=== PATIENT | female | born 1930 | race Caucasian/White ===

== ENCOUNTER 2017-06-14 15:28 | Inpatient (IN) | payer OTHER, BC ==
[~2017-06-14] VITALS: Ht 165.1 cm; Wt 48.4 kg
[~2017-06-14 15:28] MED LIST: ANORO ELLIPTA1 EACH IH; ASPIRIN81 M2 PO; ATORVASTATIN CA20 MG PO; B-121000 MC2 PO; CILOSTAZOL50 MG PO; CYANOCOBALAM1000 MCG PO; DOCUSATE SODIU100 MG PO; ENDOCET 5-3251 EACH PO; ERGOCALCIF50000 UNIT PO; ESGIC 50-325-41 EAC1 PO; FIORINAL 50-321 EACH PO; FUROSEMIDE40 MG PO; IRON160 M1 PO; IRON325 MG PO; LEVOXYL88 MCG PO; LOSARTAN POTAS100 MG PO; LOVENOX40 MG/0.4 SC; MEDROL DOSEPAK4 MG PO; METFORMIN HCL500 MG PO; NAPROSYN500 MG PO; OMEPRAZOLE40 M1 PO; VALIUM5 MG PO; ZOFRAN4 MG PO; ZOLPIDEM TARTRAT5 MG PO
[2017-06-14 16:47] LABS: PROTHROMBIN TIME 11.1 SEC (10.2-12.9)
[2017-06-14 16:48] LABS: EOSINOPHIL (%) 8.3 % (0-5); EOSINOPHIL COUNT 0.5 K/uL (0-0.3); HEMATOCRIT 19.1 % (36.0-46.0); IMMATURE GRANULOCYTE (%) 0.3 % (0.0-0.7); LYMPHOCYTE COUNT 0.6 K/uL (1.0-2.8); MCH 24.2 PG (29.0-34.0); MCHC 30.9 G/DL (30.0-36.0); MCV 78.3 FL (83-99); MEAN PLAT.VOLUME 9.8 uM^3 (9.5-12.4); MONOCYTE (%) 15.8 % (3-12); NEUTROPHIL (%) 65.7 % (45-76); PLATELET COUNT 523 K/uL (156-360); RBC DIS.WIDTH-CV 15.6 % (11.8-14.6); RBC DIS.WIDTH-SD 44.4 % (39-53); RED BLOOD COUNT 2.44 M/uL (3.80-5.20); WHITE BLOOD COUNT 6.1 K/uL (4.1-10.2)
[2017-06-14 16:50] LABS: PTT 35.1 SEC (25-37)
[2017-06-14 17:35] LABS: TROP-I INTERPRETATION NEGATIVE; TROPONIN-I < 0.01 ng/mL (0.0-0.30)
[2017-06-14 17:44] LABS: FERRITIN 8 NG/ML (10-291)
[2017-06-14 17:45] LABS: ALKALINE PHOSPHATASE 81 IU/L (3-129); ANION GAP 8 MEQ/L (2-14); CHLORIDE 99 MEQ/L (99-109); GFR ESTIMATE (CALCULATED) > 59 mL/min/; GLUCOSE 126 mg/dL (70-99); POTASSIUM 4.3 MEQ/L (3.7-5.4); SAMPLE HEMOLYSIS CHECK 0; SAMPLE ICTERIC CHECK 0; SAMPLE LIPEMIA CHECK 1; SODIUM 130 MEQ/L (136-147); TOTAL BILIRUBIN 0.2 MG/DL (0.0-1.0); UREA NITROGEN (BUN) 19 mg/dL (9-23)
[2017-06-14 17:47] LABS: IRON < 10 MCG/DL (35-150)
[2017-06-14] MEDS ORDERED: FIORINAL 50-321 EACH PO (18:41)
[2017-06-14] MEDS ORDERED: TRAMADOL HCL50 MG PO (18:42)
[2017-06-14] MEDS ORDERED: LIPITOR20 MG PO (18:43)
[2017-06-14] MEDS ORDERED: PLAVIX75 MG PO (18:44)
[2017-06-14] MEDS ORDERED: MELATONIN1 MG PO (18:45)
[2017-06-14] MEDS ORDERED: BENADRYL ALLERG25 MG PO (18:46)
[2017-06-14 21:13] VITALS: BP 150/67
[2017-06-14 22:29] VITALS: BP 145/67
[2017-06-14 22:44] VITALS: BP 125/65
[2017-06-14 23:44] VITALS: BP 148/71
[2017-06-15] VITALS (20 sets, daily range): BP systolic 126–163; BP diastolic 56–74
[2017-06-15 07:29] LABS: HEMATOCRIT 25.6 % (36.0-46.0); MEAN PLAT.VOLUME 9.7 uM^3 (9.5-12.4); PLATELET COUNT 417 K/uL (156-360); RBC DIS.WIDTH-CV 14.7 % (11.8-14.6); RBC DIS.WIDTH-SD 41.5 % (39-53)
[2017-06-15 07:51] LABS: RED BLOOD COUNT 3.28 M/uL (3.80-5.20)
[2017-06-16 00:04] VITALS: BP 153/67
[2017-06-16 08:16] VITALS: BP 154/66
[2017-06-16 11:14] LABS: HEMATOCRIT 34.1 % (36.0-46.0); MCH 26.4 PG (29.0-34.0); MCHC 33.4 G/DL (30.0-36.0); MCV 78.9 FL (83-99); MEAN PLAT.VOLUME 9.1 uM^3 (9.5-12.4); PLATELET COUNT 377 K/uL (156-360); RBC DIS.WIDTH-CV 15.4 % (11.8-14.6); RBC DIS.WIDTH-SD 43.9 % (39-53); WHITE BLOOD COUNT 6.7 K/uL (4.1-10.2)
[2017-06-16 11:15] LABS: RED BLOOD COUNT 4.32 M/uL (3.80-5.20)
[2017-06-16 11:41] LABS: ALKALINE PHOSPHATASE 77 IU/L (3-129); ANION GAP 9 MEQ/L (2-14); CHLORIDE 98 MEQ/L (99-109); GFR ESTIMATE (CALCULATED) > 59 mL/min/; GLUCOSE 120 mg/dL (70-99); SAMPLE HEMOLYSIS CHECK 0; SAMPLE ICTERIC CHECK 0; SAMPLE LIPEMIA CHECK 0; SODIUM 131 MEQ/L (136-147); UREA NITROGEN (BUN) 13 mg/dL (9-23)
[2017-06-16 11:42] LABS: TOTAL BILIRUBIN 0.7 MG/DL (0.0-1.0)
[2017-06-16] MEDS ORDERED: DOCUSATE SODIU100 MG PO (12:43)
[2017-06-16] MEDS ORDERED: SODIUM CHLORIDE1 G1 PO (12:43)
== END 2017-06-16 14:09 | disposition home or self-care (01) | DRG 812 ==
LOC: EME 15:28 → 3EAST 17:30 → EDOF 17:30 → ENRESERV 17:54 → 3EAST 20:56
PROVIDERS: Emergency Medicine; Family Medicine
PROC: 30233N1 Transfusion of Nonautologous Red Blood Cells into Peripheral Vein, Percutaneous Approach (ICD-10-PCS; principal; 2017-06-14)
DX: D50.9 Iron deficiency anemia, unspecified (principal); K92.2 Gastrointestinal hemorrhage, unspecified; J44.9 Chronic obstructive pulmonary disease, unspecified; I10 Essential (primary) hypertension; E78.5 Hyperlipidemia, unspecified; K21.9 Gastro-esophageal reflux disease without esophagitis; K59.04 Chronic idiopathic constipation; E87.1 Hypo-osmolality and hyponatremia; F17.200 Nicotine dependence, unspecified, uncomplicated; E03.9 Hypothyroidism, unspecified; D47.2 Monoclonal gammopathy; G43.909 Migraine, unspecified, not intractable, without status migrainosus; E53.8 Deficiency of other specified B group vitamins; E11.51 Type 2 diabetes mellitus with diabetic peripheral angiopathy without gangrene
CPT/HCPCS: 36415; 71010; 80053; 80061; 82607; 82728; 83036; 83540; 84443; 84466; 84484; 85025; 85025 91; 85027; 85610; 85730; 86850; 86900; 86901; 86905; 86920; 93005; 94640; 94640 76; 99281; 99285; C9113; P9016

== ENCOUNTER 2017-10-11 16:14 | Inpatient (IN) | payer OTHER, BC ==
[~2017-10-11] VITALS: Ht 165.1 cm; Wt 48.9 kg
[~2017-10-11 16:14] MED LIST changes: +BENADRYL ALLERG25 MG PO; +LIPITOR20 MG PO; +MELATONIN1 MG PO; +PLAVIX75 MG PO; +SODIUM CHLORIDE1 G1 PO; +TRAMADOL HCL50 MG PO
[2017-10-11 16:53] LABS: BASOPHIL (%) 0.2 % (0-1); EOSINOPHIL (%) 0.3 % (0-5); HEMATOCRIT 32.8 % (36.0-46.0); HEMOGLOBIN 11.6 G/DL (11.9-15.5); IMMATURE GRANULOCYTE (%) 0.2 % (0.0-0.7); LYMPHOCYTE (%) 3.7 % (15-42); LYMPHOCYTE COUNT 0.3 K/uL (1.0-2.8); MCH 33.2 PG (29.0-34.0); MCHC 35.4 G/DL (30.0-36.0); MONOCYTE (%) 7.7 % (3-12); MONOCYTE COUNT 0.7 K/uL (0-0.8); NEUTROPHIL (%) 87.9 % (45-76); NEUTROPHIL COUNT 7.9 K/uL (1.8-6.4); PLATELET COUNT 322 K/uL (156-360); RBC DIS.WIDTH-CV 13.6 % (11.8-14.6); RBC DIS.WIDTH-SD 46.4 % (39-53); RED BLOOD COUNT 3.49 M/uL (3.80-5.20); WHITE BLOOD COUNT 8.9 K/uL (4.1-10.2)
[2017-10-11 17:04] LABS: AMYLASE 57 IU/L (1-118); CHLORIDE 94 mEq/L (99-109); POTASSIUM 4.7 mEq/L (3.7-5.4); SODIUM 130 mEq/L (136-147)
[2017-10-11 17:06] LABS: GLUCOSE 149 mg/dL (70-99); PTT 35.5 SEC (25-37)
[2017-10-11 17:09] LABS: SERUM ETHYL ALCOHOL < 10 mg/dL
[2017-10-11 17:10] LABS: CREATININE 0.7 mg/dL (0.6-1.3); GFR ESTIMATE (CALCULATED) > 59 mL/min/
[2017-10-11 17:11] LABS: UREA NITROGEN (BUN) 15 mg/dL (9-23)
[2017-10-11 17:13] LABS: LIPASE 25 U/L (1.0-51.0)
[2017-10-11 17:16] LABS: TROP-I INTERPRETATION POSITIVE
[2017-10-11 17:18] LABS: TROPONIN-I 2.37 ng/mL (0.0-0.30)
[2017-10-11] MEDS ORDERED: VITAMIN B12 100MCG PO (18:44)
[2017-10-11] MEDS ORDERED: PRESERVISION A1 EAC2 PO (18:46)
[2017-10-11] MEDS ORDERED: FEOSOL325 MG PO (18:49)
[2017-10-11] MEDS ORDERED: [UNRECOGNIZED DRUG - OTHER] PO (18:50)
[2017-10-11] MEDS ORDERED: ALLERGY RELIEF10 M1 PO (18:51)
[2017-10-11] MEDS ORDERED: OMEPRAZOLE40 M1 PO (19:13)
[2017-10-11 20:27] LABS: APPEARANCE CLEAR ((CLEAR)); BILIRUBIN NEGATIVE; BLOOD NEGATIVE; COLOR YELLOW ((YELLOW)); GLUCOSE (STRIP) NEGATIVE; KETONES 5; LEUKOCYTES NEGATIVE; NITRITE NEGATIVE; PROTEIN (STRIP) 30; SPECIFIC GRAVITY 1.014 (1.000-1.030); UCUL ADDED? NO; UROBILINOGEN 0.2 MG/DL (0.2-1.0)
[2017-10-11 20:50] LABS: AMPHETAMINE NEGATIVE (500 ng/mL); BARBITURATES NEGATIVE (200 ng/mL); BENZODIAZEPINES NEGATIVE (150 ng/mL); BUPRENORPHINE NEGATIVE (10 ng/mL); COCAINE NEGATIVE (150 ng/mL); METHADONE NEGATIVE (200 ng/mL); METHAMPHETAMINE NEGATIVE (500 ng/mL); OPIATES (MORPHINE) NEGATIVE (100 ng/mL); OXYCODONE NEGATIVE (100 ng/mL); PHENCYCLIDINE NEGATIVE (25 ng/mL); PROPOXYPHENE NEGATIVE (300 ng/mL); THC CANNABINOIDS NEGATIVE (50 ng/mL); TRICYCLIC ANTIDEPRESSANTS NEGATIVE (300 ng/mL)
[2017-10-11 20:58] VITALS: BP 139/92
[2017-10-11 21:30] VITALS: BP 139/92
[2017-10-11 22:00] VITALS: BP 145/8
[2017-10-11 23:00] VITALS: BP 135/83
[2017-10-12] VITALS (18 sets, daily range): BP systolic 117–158; BP diastolic 64–104
[2017-10-12 01:46] LABS: TROP-I INTERPRETATION POSITIVE; TROPONIN-I 2.91 ng/mL (0.0-0.30)
[2017-10-12 04:29] LABS: HEMATOCRIT 29.2 % (36.0-46.0); HEMOGLOBIN 10.5 G/DL (11.9-15.5); MCH 33.4 PG (29.0-34.0); PLATELET COUNT 401 K/uL (156-360); RBC DIS.WIDTH-CV 13.4 % (11.8-14.6); RED BLOOD COUNT 3.14 M/uL (3.80-5.20)
[2017-10-12 04:51] LABS: CHLORIDE 97 mEq/L (99-109); POTASSIUM 4.4 mEq/L (3.7-5.4); SODIUM 129 mEq/L (136-147)
[2017-10-12 04:52] LABS: MAGNESIUM 1.6 mg/dL (1.3-2.7)
[2017-10-12 04:53] LABS: GLUCOSE 134 mg/dL (70-99)
[2017-10-12 04:57] LABS: CREATININE 0.7 mg/dL (0.6-1.3); GFR ESTIMATE (CALCULATED) > 59 mL/min/
[2017-10-12 04:58] LABS: UREA NITROGEN (BUN) 18 mg/dL (9-23)
[2017-10-12 05:04] LABS: TROP-I INTERPRETATION POSITIVE
[2017-10-12 05:05] LABS: TROPONIN-I 2.33 ng/mL (0.0-0.30)
[2017-10-12 10:42] LABS: TROP-I INTERPRETATION POSITIVE; TROPONIN-I 2.47 ng/mL (0.0-0.30)
[2017-10-13] VITALS (12 sets, daily range): BP systolic 103–145; BP diastolic 64–97
[2017-10-13 13:18] LABS: CHLORIDE 95 MEQ/L (99-109); POTASSIUM 4.9 MEQ/L (3.7-5.4); SODIUM 125 MEQ/L (136-147)
[2017-10-13 13:24] LABS: CREATININE 0.9 MG/DL (0.6-1.3); GFR ESTIMATE (CALCULATED) > 59 mL/min/; GLUCOSE 145 mg/dL (70-99)
[2017-10-13 13:25] LABS: UREA NITROGEN (BUN) 30 mg/dL (9-23)
[2017-10-14 08:40] VITALS: BP 117/54
[2017-10-14 14:13] LABS: HEMATOCRIT 28.4 % (36.0-46.0); HEMOGLOBIN 9.8 G/DL (11.9-15.5); MCH 32.7 PG (29.0-34.0); MCHC 34.5 G/DL (30.0-36.0); MCV 94.7 FL (83-99); PLATELET COUNT 341 K/uL (156-360); RBC DIS.WIDTH-CV 13.7 % (11.8-14.6); RBC DIS.WIDTH-SD 47.3 % (39-53); WHITE BLOOD COUNT 9.3 K/uL (4.1-10.2)
[2017-10-14 14:27] LABS: CHLORIDE 94 MEQ/L (99-109); POTASSIUM 4.2 MEQ/L (3.7-5.4); SODIUM 125 MEQ/L (136-147)
[2017-10-14 14:36] LABS: CREATININE 0.9 MG/DL (0.6-1.3); GFR ESTIMATE (CALCULATED) > 59 mL/min/; UREA NITROGEN (BUN) 35 mg/dL (9-23)
[2017-10-14 14:37] LABS: GLUCOSE 97 mg/dL (70-99)
[2017-10-14 23:59] VITALS: BP 120/61
[2017-10-15 07:22] LABS: CHLORIDE 102 MEQ/L (99-109); CREATININE 0.8 MG/DL (0.6-1.3); GFR ESTIMATE (CALCULATED) > 59 mL/min/; GLUCOSE 88 mg/dL (70-99); POTASSIUM 4.4 MEQ/L (3.7-5.4); UREA NITROGEN (BUN) 31 mg/dL (9-23)
[2017-10-15 07:25] VITALS: BP 145/76
[2017-10-15 07:31] LABS: SODIUM 135 MEQ/L (136-147)
[2017-10-15 15:25] VITALS: BP 128/69
[2017-10-15 20:58] VITALS: BP 126/73
[2017-10-15 23:56] VITALS: BP 131/63
[2017-10-16 08:00] VITALS: BP 111/68; BP 129/79
[2017-10-16 11:33] LABS: CHLORIDE 98 MEQ/L (99-109); CREATININE 0.8 MG/DL (0.6-1.3); GFR ESTIMATE (CALCULATED) > 59 mL/min/; POTASSIUM 3.8 MEQ/L (3.7-5.4); SODIUM 137 MEQ/L (136-147); UREA NITROGEN (BUN) 27 mg/dL (9-23)
[2017-10-16 11:38] LABS: GLUCOSE 193 mg/dL (70-99)
[2017-10-16 11:56] VITALS: BP 129/70
[2017-10-16 17:31] VITALS: BP 141/77
[2017-10-16 18:30] VITALS: BP 147/79
[2017-10-17 01:39] VITALS: BP 94/53
[2017-10-17 07:18] LABS: CHLORIDE 98 MEQ/L (99-109); CREATININE 0.8 MG/DL (0.6-1.3); GFR ESTIMATE (CALCULATED) > 59 mL/min/; POTASSIUM 4.1 MEQ/L (3.7-5.4); SODIUM 138 MEQ/L (136-147); UREA NITROGEN (BUN) 26 mg/dL (9-23)
[2017-10-17 07:28] LABS: GLUCOSE 116 mg/dL (70-99)
[2017-10-17 07:43] VITALS: BP 110/58
[2017-10-17] MEDS ORDERED: CARVEDILOL25 MG PO (13:40)
[2017-10-17] MEDS ORDERED: ASPIR-LOW81 MG PO (13:40)
[2017-10-17] MEDS ORDERED: DOCUSATE SODIU100 MG PO (13:40)
[2017-10-17] MEDS ORDERED: FUROSEMIDE20 MG PO (13:40)
[2017-10-17] MEDS ORDERED: PRAVASTATIN SOD80 MG PO (13:40)
[2017-10-17] MEDS ORDERED: CEFTIN250 MG PO (13:40)
[2017-10-17 14:15] VITALS: BP 117/62
== END 2017-10-17 17:30 | DRG 281 ==
LOC: EME → EDBD 16:14 → EME 16:14 → 4WEST 19:50 → EDOF 19:50 → ENRESERV 19:54 → 4WEST 20:46 → ENRESERV 10-13 21:00 → 5EAST 10-14 00:07
PROVIDERS: Emergency Medicine Emergency Medical Services; Internal Medicine; Internal Medicine Cardiovascular Disease; Surgery
DX: I21.09 ST elevation (STEMI) myocardial infarction involving other coronary artery of anterior wall (principal); E87.1 Hypo-osmolality and hyponatremia; J44.9 Chronic obstructive pulmonary disease, unspecified; D63.8 Anemia in other chronic diseases classified elsewhere; K21.9 Gastro-esophageal reflux disease without esophagitis; I10 Essential (primary) hypertension; E11.51 Type 2 diabetes mellitus with diabetic peripheral angiopathy without gangrene; R64 Cachexia; I42.9 Cardiomyopathy, unspecified; I27.20 Pulmonary hypertension, unspecified; E03.9 Hypothyroidism, unspecified; E78.5 Hyperlipidemia, unspecified; F17.200 Nicotine dependence, unspecified, uncomplicated; F32.9 Major depressive disorder, single episode, unspecified; H35.30 Unspecified macular degeneration; G89.29 Other chronic pain; H54.7 Unspecified visual loss; J90 Pleural effusion, not elsewhere classified; E53.8 Deficiency of other specified B group vitamins
CPT/HCPCS: 71045; 71250; 74176; 74230; 80048; 81003; 82150; 82330; 82948; 83690; 83735; 84100; 84484; 85025; 85027; 85610; 85730; 86850; 86900; 86901; 87502; 87641; 92611 GN; 93005; 93306; 93308; 94799; 97530 GO; 99281; 99285; G0480; J0456; J0696; J1160; J1940; J2270; J2405; J3010; J7030